=== PATIENT | female | born 1945 | race Caucasian/White ===

== ENCOUNTER 2016-04-08 00:57 | Emergency (ER) | payer OTHER ==
[~2016-04-08] VITALS: Ht 170.2 cm; Wt 98.9 kg
[~2016-04-08 00:57] MED LIST: ADVAIR 250/501 DISK IH; ATIVAN2 MG PO; Advair HFA 115/21 IH; BIOFREEZE TP; BUPROBAN150 MG PO; Benadryl PO; CELEBREX200 MG PO; CETIRIZINE HCL10 MG PO; CLARITIN,ALAVAR10 MG PO; COLACE100 MG PO; COUMADIN,JANTOVE1 MG PO; COZAAR100 MG PO; CYCLOBENZAPRINE10 M1 PO; Cozaar PO; Cyclobenzaprine HCl PO; DILAUDID2 MG PO; DUONEB 2.5-0.5 M3 ML AEROSOL; EXCEDRIN EXTRA1 EACH PO; FEOSOL325 MG PO; Feosol PO; Flexeril PO; Folvite PO; GABAPENTIN100 MG PO; GEODON80 MG PO; HYDROCHLOROTH12.5 M1 PO; HYDROCHLOROTHIA25 MG PO; HYDRODIURIL,O12.5 M2 PO; LACTINEX,FLO1 PACKET PO; LEVOFLOXACIN750 MG PO; LEVOTHROID,SYN0.1 MG PO; LEXAPRO20 MG PO; LIDODERM 5% P1 PATCH PO; LIDODERM 5% P1 PATCH TD; LIDODERM 5% P1 PATCH TP; LIPITOR20 MG PO; LO-DOSE ASPIRIN81 M1 PO; LORAZEPAM2 MG PO; LOSARTAN POTAS100 MG PO; Levothroid,Synthroid PO; Losartan Potassium PO; MICROZIDE12.5 M1 PO; Maalox, Mylanta PO; Milk Of Magnesia,MOM PO; NORCO 5/3251 TABLET PO; NORVASC10 MG PO; NORVASC5 MG PO; PREDNISONE20 MG PO; PROAIR HFA8.5 GM IH; RESTORIL30 MG PO; RISPERDAL0.5 MG PO; Remove Lidoderm Patc TD; SENOKOT S,PE1 TABLET PO; SLEEP AID25 M2 PO; SYNTHROID112 MCG PO; SYNTHROID125 MCG PO; Synthroid PO; TOPAMAX25 MG PO; TRAMADOL-ACETA1 EACH PO; Tylenol Regular Stre PO; VESICARE5 MG PO; VITAMIN D-32000 UNI2 PO; VYTORIN 10-401 EACH PO; Vicodin,Lortab 5/500 PO; Vitamin D, Drisdol PO; WELLBUTRIN SR150 MG PO; XANAX0.5 MG PO; ZOLOFT50 MG PO
[2016-04-08 01:22] LABS: HEMATOCRIT 39.2 % (36.0-46.0); MCH 28.9 PG (29.0-34.0); MCHC 33.7 G/DL (30.0-36.0); MCV 85.8 FL (83-99); MEAN PLAT.VOLUME 9.5 uM^3 (9.5-12.4); PLATELET COUNT 321 K/uL (156-360); RBC DIS.WIDTH-CV 13.4 % (11.8-14.6); RBC DIS.WIDTH-SD 41.4 % (39-53); RED BLOOD COUNT 4.57 M/uL (3.80-5.20); WHITE BLOOD COUNT 9.8 K/uL (4.1-10.2)
[2016-04-08 01:32] LABS: CHLORIDE 100 mEq/L (99-109); POTASSIUM 3.1 mEq/L (3.7-5.4); SODIUM 138 mEq/L (136-147)
[2016-04-08 01:33] LABS: GLUCOSE 282 mg/dL (70-99)
[2016-04-08 01:35] LABS: ANION GAP 15 MEQ/L (2-14)
[2016-04-08 01:37] LABS: GFR ESTIMATE (CALCULATED) 39 mL/min/
[2016-04-08 01:38] LABS: UREA NITROGEN (BUN) 19 mg/dL (9-23)
[2016-04-08 01:42] LABS: TROP-I INTERPRETATION NEGATIVE; TROPONIN-I < 0.01 ng/mL (0.0-0.30)
[2016-04-08 03:12] LABS: INFLUENZA A VIRAL ANTIGEN NEGATIVE; INFLUENZA B VIRAL ANTIGEN NEGATIVE
[2016-04-08] MEDS ORDERED: ACETAMINOPHEN-120 ML PO (10:19)
[2016-04-08 11:11] VITALS: BP 125/61
== END 2016-04-08 11:12 | disposition home or self-care (01) ==
LOC: EME 00:57
PROVIDERS: Emergency Medicine
DX: J20.9 Acute bronchitis, unspecified (principal); B34.9 Viral infection, unspecified; E11.65 Type 2 diabetes mellitus with hyperglycemia; E86.0 Dehydration; Z87.891 Personal history of nicotine dependence; Z88.1 Allergy status to other antibiotic agents; Z88.5 Allergy status to narcotic agent; Z88.0 Allergy status to penicillin; Z88.8 Allergy status to other drugs, medicaments and biological substances; Z79.82 Long term (current) use of aspirin; Z79.84 Long term (current) use of oral hypoglycemic drugs; Z96.651 Presence of right artificial knee joint; Z96.652 Presence of left artificial knee joint; E78.5 Hyperlipidemia, unspecified; I10 Essential (primary) hypertension; Z87.442 Personal history of urinary calculi; Z86.711 Personal history of pulmonary embolism
CPT/HCPCS: 71020; 80048; 84484; 85027; 87502; 93005; 99281; 99284; J7030

== ENCOUNTER 2016-08-31 09:38 | Emergency (ER) | payer OTHER ==
[~2016-08-31] VITALS: Ht 170.2 cm; Wt 100.9 kg
[~2016-08-31 09:38] MED LIST changes: +ACETAMINOPHEN-120 ML PO
[2016-08-31 11:10] LABS: ADD MIUA? YES; BILIRUBIN NEGATIVE; BLOOD NEGATIVE; COLOR YELLOW ((YELLOW)); GLUCOSE (STRIP) NEGATIVE; KETONES NEGATIVE; LEUKOCYTES TRACE; NITRITE NEGATIVE; PROTEIN (STRIP) NEGATIVE; UROBILINOGEN 0.2 MG/DL (0.2-1.0)
[2016-08-31 11:15] LABS: BACTERIA NONE SEEN /HPF; EPITHELIAL CELLS 2+ /HPF; MUCUS NONE SEEN /LPF; RED BLOOD CELLS 0-5 /HPF (0-5); WHITE BLOOD CELLS 0-5 /HPF (0-5)
[2016-08-31] MEDS ORDERED: NORCO 5/3251 TABLET PO ×2 (11:31→11:44)
[2016-08-31 12:23] VITALS: BP 105/57
== END 2016-08-31 12:24 | disposition home or self-care (01) ==
LOC: EME 09:38
PROVIDERS: Physician Assistant
DX: M54.5 Low back pain (principal); M25.552 Pain in left hip; E78.5 Hyperlipidemia, unspecified; E11.9 Type 2 diabetes mellitus without complications; D64.9 Anemia, unspecified; Z87.891 Personal history of nicotine dependence; I12.9 Hypertensive chronic kidney disease with stage 1 through stage 4 chronic kidney disease, or unspecified chronic kidney disease; N18.9 Chronic kidney disease, unspecified; Z87.442 Personal history of urinary calculi; Z96.651 Presence of right artificial knee joint; Z96.642 Presence of left artificial hip joint
CPT/HCPCS: 73502; 81003; 99281; 99284

== ENCOUNTER 2016-12-10 00:49 | Emergency (ER) | payer OTHER ==
[~2016-12-10] VITALS: Ht 170.2 cm; Wt 99.5 kg
[2016-12-10] MEDS ORDERED: NORCO 5/3251 TABLET PO (03:00)
[2016-12-10 03:17] VITALS: BP 127/75
== END 2016-12-10 03:25 | disposition home or self-care (01) ==
LOC: EME 00:49
DX: S20.212A Contusion of left front wall of thorax, initial encounter (principal); W05.0XXA Fall from non-moving wheelchair, initial encounter; I12.9 Hypertensive chronic kidney disease with stage 1 through stage 4 chronic kidney disease, or unspecified chronic kidney disease; N18.9 Chronic kidney disease, unspecified; E78.5 Hyperlipidemia, unspecified; Z87.442 Personal history of urinary calculi; Z96.651 Presence of right artificial knee joint; Z96.642 Presence of left artificial hip joint; Z79.82 Long term (current) use of aspirin; Z88.0 Allergy status to penicillin; Z88.1 Allergy status to other antibiotic agents; Z87.891 Personal history of nicotine dependence
CPT/HCPCS: 71101; 99281; 99284

== ENCOUNTER 2017-05-31 19:48 | Emergency (ER) | payer OTHER ==
[~2017-05-31] VITALS: Ht 170.2 cm; Wt 96.0 kg
[2017-05-31 20:25] LABS: HEMATOCRIT 38.7 % (36.0-46.0); HEMOGLOBIN 12.8 G/DL (11.9-15.5); MCH 29.4 PG (29.0-34.0); MCHC 33.1 G/DL (30.0-36.0); PLATELET COUNT 228 K/uL (156-360); RBC DIS.WIDTH-CV 12.8 % (11.8-14.6); RBC DIS.WIDTH-SD 42.1 % (39-53); RED BLOOD COUNT 4.35 M/uL (3.80-5.20)
[2017-05-31 20:35] LABS: CHLORIDE 106 mEq/L (99-109); POTASSIUM 4.2 mEq/L (3.7-5.4); SODIUM 136 mEq/L (136-147)
[2017-05-31 20:36] LABS: GLUCOSE 131 mg/dL (70-99)
[2017-05-31 20:40] LABS: CREATININE 1.3 mg/dL (0.6-1.3); GFR ESTIMATE (CALCULATED) 43 mL/min/
[2017-05-31 20:41] LABS: UREA NITROGEN (BUN) 17 mg/dL (9-23)
[2017-06-01 01:04] VITALS: BP 146/64
== END 2017-06-01 01:04 | disposition home or self-care (01) ==
LOC: EME 19:48
DX: J20.9 Acute bronchitis, unspecified (principal); E78.5 Hyperlipidemia, unspecified; I12.9 Hypertensive chronic kidney disease with stage 1 through stage 4 chronic kidney disease, or unspecified chronic kidney disease; N18.9 Chronic kidney disease, unspecified; F41.9 Anxiety disorder, unspecified; F32.9 Major depressive disorder, single episode, unspecified; G43.909 Migraine, unspecified, not intractable, without status migrainosus; Z86.711 Personal history of pulmonary embolism; Z87.442 Personal history of urinary calculi; Z87.891 Personal history of nicotine dependence; Z96.651 Presence of right artificial knee joint; Z79.82 Long term (current) use of aspirin; Z88.5 Allergy status to narcotic agent; Z88.0 Allergy status to penicillin; Z88.8 Allergy status to other drugs, medicaments and biological substances
CPT/HCPCS: 71275; 80048; 85027; 93005; 94640; 99281; 99285